=== PATIENT | male | born 1985 | race Caucasian/White ===

== ENCOUNTER 2016-09-06 18:59 | Inpatient (IN) | payer OTHER ==
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
--- NOTE | ~2016-09-06 | PA ---
Unit #: [id number] #: [id number] Patient: JENNIFER SINGH [id number] [facility] [address] [place] [address] [id number] I MR#: [id number] NAME: JENNIFER SINGH ROOM: P184 Age: 31 Sex: M Admission Date: 09/06/2016 : 1985 Date of Assessment: 09/07/2016 Attending Physician: Isidro Hernandez M.D. Admitting Physician: Isidro Hernandez M.D. Primary Care Physician: Generic Doctor Not In System PSYCHIATRIC ASSESSMENT IDENTIFYING INFORMATION The patient is a 31-year-old unmarried white male admitted to the [facility] unit after he had presented to a [facility] Emergency Room complaining of chest pain and suicidal ideation. INFORMANT(S) Patient. RELIABILITY Fair. CHIEF COMPLAINT None given. HISTORY OF PRESENT ILLNESS The patient is a 31-year-old white male with an extensive substance abuse history stating that his drugs of choice are cocaine and methamphetamine. He has recently used these substances. He presented to the [facility] Emergency Room complaining of chest pain which was thought to have possibly been cocaine related. While there made suicidal threats with plan to shoot himself. The patient claims to have been diagnosed with schizophrenia and bipolar disorder in the past but also reports an extensive substance abuse history including a history of intravenous substance abuse. When seen today, the patient is reporting some reduction in suicidal ideation. He does continue to complain of dysphoric mood. He is from the [place], [place] area but states that he was in the [facility] "visiting friends." He hopes to return to the [place] area upon his discharge from the hospital. The patient reports recent weight loss of some 30 pounds related to his substance use. His suicide plan included either shooting himself, stabbing himself, jumping from a building or hanging himself. 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 PAST PSYCHIATRIC HISTORY Noncontributory. FAMILY HISTORY Noncontributory. SOCIAL HISTORY The patient is originally from the [place], [place] area. He reports substance use as noted previously. He completed the 11th grade. Unit #: [id number] #: [id number] Patient: JENNIFER SINGH MEDICATION HISTORY None at this time. ALLERGIES Penicillin. SUBSTANCE ABUSE HISTORY As noted previously, he is a smokeless tobacco user. MENTAL STATUS EXAM At this time reveals the patient to be a well-developed, well-nourished white male appearing stated age. He is in no apparent physical distress at time of examination. He is awake, alert, oriented in all spheres. His mood is mildly dysphoric. His affect blunted. Speech is generally relevant and coherent. There are no gross deficits in memory or cognition noted. Intelligence is judged to be in the average range based on fund of knowledge. The patient is generally cooperative during interview. He is currently endorsing positive suicidal ideation. He denies homicidal ideation. He denies any psychotic symptoms. His judgement and insight appear to be intact. ASSETS AND LIABILITIES Patient's assets to be assessed. Liabilities, lack of resources. ADMITTING DIAGNOSES 1. Cocaine use disorder. 2. Methamphetamine use disorder. 3. Dysthymic disorder. PSYCHIATRIC PLAN/TREATMENT GOALS The patient remains hospitalized for safety and stabilization. Suicide precautions remain in place. No detoxification protocol has been initiated as the patient's drugs of choice appear to be methamphetamine and cocaine. DISCHARGE PLANNING Return to the [facility] area upon his discharge from the hospital and that will likely take place early next week. Dictated by... Isidro Hernandez M.D. ENMA/ryne TD: 09/07/2016 18:26 JOB #: [id number] Unit #: [id number] #: [id number] Patient: JENNIFER SINGH PSYCHIATRIC ASSESSMENT X Isidro Hernandez MD X PSYCHIATRIC ASSESSMENT
--- NOTE | ~2016-09-06 | PN ---
Unit #: [id number] #: [id number] Patient: JENNIFER SINGH [id number] [facility] [address] [place] [address] [id number] I MR#: [id number] NAME: JENNIFER SINGH ROOM: 84 Age: 31 Sex: M Admission Date: 09/06/2016 : 1985 Attending Physician: Isidro Hernandez M.D. Admitting Physician: Isidro Hernandez M.D. Primary Care Physician: Emeli Doctor Not In System [facility] PROGRESS NOTES DATE 09/08/2016 DISCUSSION The patient continues to complain of significant symptoms of opioid withdrawal, but does appear improved and he has been participating within the therapeutic milieu. We continue current treatment and expect discharge by Saturday with the patient planning return to the [facility]. Dictated by... Isidro Hernandez M.D. CB/anneliese TD: 09/09/2016 16:00 JOB #: [id number] [facility] PROGRESS NOTES X Isidro Hernandez MD PROGRESS NOTE
--- NOTE | ~2016-09-06 | DS ---
Unit #: [id number] #: [id number] Patient: JENNIFER SINGH [id number] [facility] [address] [place] [address] [id number] I MR#: [id number] NAME: JENNIFER SINGH ROOM: [facility] Age: 31 Sex: M Admission Date: 09/06/2016 : 1985 Discharge Date: Attending Physician: Isidro Hernandez M.D. Primary Care Physician: Generic Doctor Not In System DISCHARGE SUMMARY REASON FOR ADMISSION The patient is a 31-year-old single white male, admitted to the [facility] unit with a history of cocaine and methamphetamine abuse. HOSPITAL COURSE The patient was admitted to the [facility] unit and placed on suicide precautions as he had made some suicidal threats while coming down from cocaine and methamphetamine. The patient showed slow, but steady improvement during his stay in the hospital and his participation within the therapeutic milieu was endurable. By 09/10/2016, the patient was agreeable with plan for discharge with the following day with followup to take place through the auspices of community mental health resources in the [facility]. Discharge was ordered. FINAL DIAGNOSES Methamphetamine use disorder, cocaine use disorder. DISPOSITION ON DISCHARGE The patient is discharged on no psychotropic or other medications. FOLLOWUP Followup will take place through the auspices of [facility] mental health resources in the [facility]. PROGNOSIS The patient's prognosis is considered fair. Dictated by... Isidro Hernandez M.D. CB/jaciel TD: 09/11/2016 02:19 JOB #: [id number] Unit #: [id number] #: [id number] Patient: JENNIFER SINGH DISCHARGE SUMMARY X Isidro Hernandez MD X DISCHARGE SUMMARY
--- NOTE | ~2016-09-06 | DS ---
Unit #: [id number] #: [id number] Patient: JENNIFER SINGH [id number] [facility] [address] [place] [address] [id number] I MR#: [id number] NAME: JENNIFER SINGH ROOM: 84 Age: 31 Sex: M Admission Date: 09/06/2016 : 1985 Discharge Date: Attending Physician: Isidro Hernandez M.D. Primary Care Physician: Generic Doctor Not In System DISCHARGE SUMMARY ADDENDUM The patient's discharge has been held up because of transportation issues. He will leave the hospital tomorrow rather than today. He offers no new complaints when seen today. Dictated by... Isidro Hernandez M.D. CB/ryne TD: 09/11/2016 16:45 JOB #: [id number] DISCHARGE SUMMARY X Isidro Hernandez MD X DISCHARGE SUMMARY
--- NOTE | ~2016-09-06 | HP ---
Unit #: [id number] #: [id number] Patient: JENNIFER SINGH [id number] [place] [address] [id number] I MR#: [id number] NAME: JENNIFER SINGH ROOM: P184 Age: 31 Sex: M Admission Date: 09/06/2016 : 1985 Attending Physician: Isidro Hernandez M.D. Admitting Physician: Isidro Hernandez M.D. Primary Care Physician: Emeli Doctor Not In System HISTORY AND PHYSICAL HISTORY OF PRESENT ILLNESS Jennifer is a 31 year old, admitted to [facility] because of his drug use which includes, cocaine. PAST MEDICAL HISTORY 1. Long history of polysubstance abuse to include cocaine and IV heroin which he has not used in years. 2. Hepatitis C. PAST SURGICAL HISTORY Nothing reported. ALLERGIES No known drug allergies. SOCIAL HISTORY He dips a can of snuff on a daily basis, denies alcohol, admits to long history of illicit drug use to include, cocaine, meth, and heroin. FAMILY HISTORY Medically noncontributory. REVIEW OF SYSTEMS CONSTITUTIONAL: No fever or chills. HEENT: Denies any sore throat, ear pain or runny nose. CARDIOVASCULAR: Denies chest pain, irregular heart rhythm or palpitations. CHEST: Denies shortness of breath or cough. No hemoptysis. GASTROINTESTINAL: Denies nausea, vomiting, diarrhea or chronic constipation. ENDOCRINE: Denies history of increased thirst or urination. No recent significant weight loss or gain. GENITOURINARY: Denies dysuria, frequency, or hematuria. SKIN: Denies any rashes. HEMATOLOGIC: Denies history of increased bleeding or bruising. MUSCULOSKELETAL: Denies any hot, swollen joints. No generalized muscle pain. NEUROLOGIC: Denies problems with vision or speech. No frequent, severe headaches. No numbness, tingling or weakness in any extremities. Denies loss of bladder or bowel control. CURRENT MEDICATIONS 1. Nicotine patch 14 mg daily 2. Milk of magnesia p.r.n. Unit #: [id number] #: [id number] Patient: JENNIFER SINGH 3. Maalox p.r.n. 4. Tylenol p.r.n. PHYSICAL EXAMINATION GENERAL: Alert, well-nourished, no apparent distress. VITAL SIGNS: Blood pressure 110/70, heart rate 84, respirations 16, and temperature 98.6. WEIGHT: 162 pounds. HEIGHT: 5 feet 9 inches. SKIN: Warm and dry without rash or lesion. HEENT: Normocephalic. TMs not viewed. Oral and nasal passages clear. Conjunctivae clear. PERRLA. EOMs intact. NECK: Supple without lymphadenopathy or thyromegaly. HEART: Regular rate and rhythm without murmur. LUNGS: Clear. ABDOMEN: Soft, nontender. : Not done. EXTREMITIES: No evidence of cyanosis, clubbing or edema. Moves all without focal deficit. NEUROLOGICAL: Grossly within normal limits. Cranial Nerves: II: Visual tejada are intact. III, IV AND : Extraocular movements are intact. Pupils are equal, round and reactive to light. V: Facial sensation is grossly normal. VII: Facial movements and expression are normal. VIII: Auditory acuity grossly intact. IX, X: Uvula is midline. Phonation is normal. XI: Patient shrugs shoulders and turns head normally. XII: Tongue protrudes in the midline. Sensory and Motor Function: Sensory and motor sensation is grossly normal. Motor: moves all extremities well. Coordination: Gait is normal. Deep Tendon Reflexes: Intact. IMPRESSION Psychiatric admission. RECOMMENDATIONS Psychiatric, per psychiatrist. MEDICAL I see no contraindications to participating in facility's activities. MEDICAL PROGNOSIS Good. MEDICAL CONDITION Stable. Dictated by... Elzbieta Salazar P.A.-C. for Fady Rodriguez/edis TD: 09/07/2016 13:16 JOB #: [id number] Unit #: [id number] #: [id number] Patient: JENNIFER SINGH HISTORY AND PHYSICAL X Elzbieta Salazar HISTORY AND PHYSICAL
[2016-09-07 09:52] LABS: THYROID STIMULATING HORMONE 2.01 uIU/ml (0.34-5.60)
[2016-09-07 09:59] LABS: FREE THYROXIN (T4) 0.78 ng/dL (0.58-1.64)
[2016-09-07 12:40] LABS: URINE APPEARANCE CLEAR; URINE BILIRUBIN NEG (NEG); URINE BLOOD NEG (NEG); URINE COLOR YELLOW; URINE GLUCOSE NEG (NEG); URINE KETONE NEG (NEG); URINE LEUKOCYTE ESTERASE NEG (NEG); URINE NITRATE NEG (NEG); URINE PROTEIN NEG (NEG); URINE SPECIFIC GRAVITY 1.021 (1.003-1.035)
== END 2016-09-12 09:35 | disposition home or self-care (01) | DRG 897 ==
LOC: P1E 18:59 → POF 09-11 12:53 → P1E 09-11 12:55
PROVIDERS: Specialist
DX: F14.20 Cocaine dependence, uncomplicated (principal); R45.851 Suicidal ideations; F15.20 Other stimulant dependence, uncomplicated; F34.1 Dysthymic disorder; B19.20 Unspecified viral hepatitis C without hepatic coma
CPT/HCPCS: 81003; 84439; 84443